=== PATIENT | male | born 1980 | race Caucasian/White ===

== ENCOUNTER 2016-08-19 15:44 | Emergency (ER) | payer OTHER ==
[~2016-08-19] VITALS: Ht 180.3 cm; Wt 95.7 kg
[~2016-08-19 15:44] MED LIST: PRED20 PO; ZYRT10TA12 PO
[2016-08-19 15:50] VITALS: BP 150/105; PULSE 88; RESP 17; TEMP 98.3; O2SAT 98
--- NOTE | 2016-08-19 16:38 | PD ---
HPI Chief Complaint: Musculoskeletal Complaint Time Seen by Provider: 16:05 Travel History International Travel<30 days: No Contact w/Intl Traveler<30days: No Traveled to known affect area: No History of Present Illness HPI 36-year-old male presents to emergency department for evaluation of left rib, left foot, right hand pain status post fall 2 days ago. Patient reports that while getting out of the pool he twisted his ankle falling onto the left side injuring his ribs on the steps of the pool. Patient denies head injury or loss consciousness. He reports left rib pain which is constant, worse with cough/ deep breath/laughing, and relieved by [id number] Motrin, severity 5 out of 10. He denies Esping, shortness of breath, abdominal pain. PFSH Past Medical History Medical History: Denies Significant Hx Diminished Hearing: No Influenza Vaccination: No Social History Alcohol Use: Yes (3/WK) Tobacco Use: No Allergies-Medications (Allergen,Severity, Reaction): Coded Allergies: No Known Allergies (Unverified , 08/19/16) Reported Meds & Prescriptions Reported Meds & Active Scripts Active Zyrtec (Cetirizine HCl) 10 Mg Tab 10 Mg PO DAILY Deltasone (Prednisone) 20 Mg Tab 20 Mg PO BID Review of Systems Except as stated in HPI: all other systems reviewed are Neg Physical Exam Narrative GENERAL: Alert, well-appearing male in no acute distress. SKIN: Focused skin assessment warm/dry. HEAD: Atraumatic. Normocephalic. EYES: Pupils equal and round. No scleral icterus. No injection or drainage. ENT: No nasal bleeding or discharge. Mucous membranes pink and moist. NECK: Trachea midline. No JVD. CARDIOVASCULAR: Regular rate and rhythm. No murmur appreciated. CHEST: Left lateral rib pain. No crepitus. RESPIRATORY: No accessory muscle use. Clear to auscultation. Breath sounds equal bilaterally. No wheezing, rale, rhonchi. GASTROINTESTINAL: Abdomen soft, non-tender, nondistended. Hepatic and splenic margins not palpable. MUSCULOSKELETAL: No obvious deformities. No clubbing. No cyanosis. No edema. Left foot: Tenderness at the base of the fifth metatarsal. Mild amount of swelling. 2+ distal pulses. Right hand: Point tenderness over the second through fifth metatarsals. Mild amount of swelling. Extremities neurovascularly intact. No deformity. Normal range of motion of all digits. NEUROLOGICAL: Awake and alert. No obvious cranial nerve deficits. Motor grossly within normal limits. Normal speech. PSYCHIATRIC: Appropriate mood and affect; insight and judgment normal. Data Data Last Documented VS Vital Signs Date Time Temp Pulse Resp B/P Pulse Ox O2 Delivery O2 Flow Rate FiO2 08/19/16 15:50 98.3 88 17 150/105 98 Orders Foot, Complete ([id number]) (08/19/16 ) Hand, Complete ([id number]) (08/19/16 ) Chest, Pa & Lat (08/19/16 ) MDM Medical Decision Making Medical Screen Exam Complete: Yes Emergency Medical Condition: Yes Differential Diagnosis Rib contusion versus fracture versus pneumothorax, left foot contusion versus fracture, right hand contusion versus fracture, Narrative Course 30 60 male percents emergency department status post fall 2 days ago with chief complaint of left rib left foot and right hand pain. On exam patient has mild swelling to the left foot, right hand and rib tenderness. Patient has clear breath sounds bilaterally. X-ray of chest, foot, hand pending. Chest x-ray: No acute disease. Negative for rib fracture, no pneumothorax. Left foot x-ray: No acute fracture Right hand x-ray: No acute fracture Diagnosis Primary Impression: Contusion of rib Qualified Code: S20.212A - Contusion of rib, left, initial encounter Additional Impression: Contusion of right hand Qualified Code: S60.221A - Contusion of right hand, initial encounter Referrals: Primary Care Physician Scripts Ibuprofen 800 Mg Vdr415 Mg PO Q8H PRN (Pain/Inflammation) #30 TAB Prov:Pat Robbins 08/19/16 Disposition: 01 DISCHARGE HOME Condition: Stable Pat Robbins Aug 19, 2016 16:38
--- NOTE | 2016-08-19 16:48 | RADRPT ---
EXAM DATE/TIME: 08/19/2016 16:34 [facility] COMPARISON: No previous studies available for comparison. INDICATIONS : Trauma, fall. MEDICAL HISTORY : None. SURGICAL HISTORY : None. ENCOUNTER: Initial ACUITY: 3 days PAIN SCORE: 2/10 LOCATION: Right hand. FINDINGS: Three view examination of the right hand demonstrates no soft tissue swelling, dislocation, or fractu re. The carpal bones appear intact. The interphalangeal and metacarpophalangeal joints are intact. Bony mineralization is normal. CONCLUSION: 1. No acute fracture or dislocation. Jameel Douglass MD on August 19, 2016 at 16:45 Board Certified Radiologist. This report was verified electronically.
--- NOTE | 2016-08-19 16:49 | RADRPT ---
EXAM DATE/TIME: 08/19/2016 16:26 [facility] COMPARISON: No previous studies available for comparison. INDICATIONS : Trauma, fall. MEDICAL HISTORY : None. SURGICAL HISTORY : None. ENCOUNTER: Initial ACUITY: 3 days PAIN SCORE: 3/10 LOCATION: Left lower chest FINDINGS: Frontal and moderate views of the chest demonstrate normal-sized cardiac silhouette. No effusion, con solidation, or pneumothorax is identified. Bones and soft tissues demonstrate no acute finding. CONCLUSION: No acute cardiopulmonary abnormality is identified. Yobani Stratton MD on August 19, 2016 at 16:46 Board Certified Radiologist. This report was verified electronically.
--- NOTE | 2016-08-19 16:52 | RADRPT ---
EXAM DATE/TIME: 08/19/2016 16:30 [facility] COMPARISON: No previous studies available for comparison. INDICATIONS : Trauma, fall. MEDICAL HISTORY : None. SURGICAL HISTORY : None. ENCOUNTER: Initial ACUITY: 3 days PAIN SCORE: 3/10 LOCATION: Left foot. FINDINGS: Three view examination of the left foot demonstrates no soft tissue swelling, dislocation, or fractur e. The tarsal bones appear intact. The interphalangeal and metatarsophalangeal joints are intact. The calcaneus is intact. Bony mineralization is normal. CONCLUSION: Negative for fracture or dislocation. Follow up in 7-10 days is suggested if symptoms persist. Mike Barker MD FACR on August 19, 2016 at 16:45 Board Certified Radiologist. This report was verified electronically.
[2016-08-19] MEDS ORDERED: IBUP800T23 PO (17:20)
== END 2016-08-19 17:25 | disposition home or self-care (01) ==
LOC: PHEFT 15:44
DX: S20.212A Contusion of left front wall of thorax, initial encounter (principal); S60.221A Contusion of right hand, initial encounter; W19.XXXA Unspecified fall, initial encounter
CPT/HCPCS: 71020; 73130; 73630; 99284